=== PATIENT | female | born 1980 | race Caucasian/White ===

== ENCOUNTER 2017-12-28 08:57 | Day surgery (SDC) | payer OTHER ==
[2017-12-28] MEDS ORDERED: LIDOCAINE 1% 2 ML INJ ID PRN (09:08)
[2017-12-28] MEDS ORDERED: LR 1,000 ML IV ONE ×2 (09:08→10:01)
[2017-12-28] MEDS ORDERED: ceFAZolin 2 GM/DEXTROSE 100 ML IV ONE (09:08)
[2017-12-28] MEDS ORDERED: BACITRACIN ZINC 14.2 GM OINTTUBE TP ONE (09:32)
--- NOTE | 2017-12-28 09:46 | PDHPUP ---
History & Physical Update H&P update statement: This history and physical update is based on an assessment of the patient which was completed after admission or registration (within 24 hours), but prior to the surgery/procedure. H&P update: H&P reviewed & patient examined, no change in patient's condition since H&P completed
--- NOTE | 2017-12-28 09:56 | PDANEPAE ---
ANE Past Medical History - Cardiovascular History Hx Hypertension: No Hx Arrhythmias: No Hx Chest Pain: No Hx Coronary Artery / Peripheral Vascular Disease: No Hx CHF / Valvular Disease: No Hx Palpitations: No - Pulmonary History Hx COPD: No Hx Asthma/Reactive Airway Disease: No Hx Recent Upper Respiratory Infection: No Hx Oxygen in Use at Home: No Hx Sleep Apnea: No Sleep Apnea Screening Result - Last Documented: Negative - Neurologic History Hx Cerebrovascular Accident: No Hx Seizures: No Hx Dementia: No - Endocrine History Hx Diabetes: No - Renal History Hx Renal Disorders: No - Liver History Hx Hepatic Disorders: No - Neurological & Psychiatric Hx Hx Neurological and Psychiatric Disorders: Yes Neurological / Psychiatric History Comment: anxiety- has xanax prn - Cancer History Hx Cancer: No - Congenital Disorder History Hx Congenital Disorders: No - GI History Hx Gastrointestinal Disorders: Yes Gastrointestinal History Comment: constipation - Other Health History Other Health History: 4 months- - Chronic Pain History Chronic Pain: No - Surgical History Prior Surgeries: wisdom teeth removed ANE Review of Systems Review of Systems: - Exercise capacity METS (RN): 4 METS ANE Patient History - Allergies Allergies/Adverse Reactions: No Known Allergies Allergy (Verified 12/22/17 11:52) - Home Medications Home Medications: 12/22/17 [Last Taken 12/22/17] Xanax PRN 12/22/17 [Last Taken Unknown] - Smoking Hx Smoking Status: Never smoked - Family Anes Hx Family Hx Anesthesia Complications: none ANE Labs/Vital Signs - Vital Signs Height: 162.56 cm Weight: 52.163 kg ANE Physical Exam - Airway Neck exam: FROM Mallampati Score: Class 1 Mouth exam: normal dental/mouth exam - Pulmonary Pulmonary: no respiratory distress - Cardiovascular Cardiovascular: regular rate and rhythym - ASA Status ASA Status: I ANE Anesthesia Plan Anesthesia Plan: general endotracheal anesthesia
[2017-12-28] MEDS ORDERED: DEXAMETHASONE 4 MG/ML VIAL ONE ×2 (10:04)
[2017-12-28] MEDS ORDERED: fentaNYL 100 MCG/2 ML INJ ONE ×3 (10:04→14:33)
[2017-12-28] MEDS ORDERED: PROPOFOL 200 MG/20 ML VIAL ONE (10:04)
[2017-12-28] MEDS ORDERED: METOCLOPRAMIDE 10 MG/2 ML VIAL ONE (10:04)
[2017-12-28] MEDS ORDERED: ROCURONIUM 50 MG/5 ML VIAL ONE (10:05)
[2017-12-28] MEDS ORDERED: LIDOCAINE 2% 100 MG/5 ML SYR ONE (10:05)
[2017-12-28] MEDS ORDERED: SUCCINYLCHOLINE CHLORIDE 200 MG/10 ML SYR IVP ONE (10:05)
[2017-12-28] MEDS ORDERED: BUPIVACAINE/EPI 0.5% 30 ML SDV ONE (10:14)
[2017-12-28] MEDS ORDERED: NALOXONE HCL 0.4 MG/ML INJ IVP PRN (14:18)
[2017-12-28] MEDS ORDERED: ACETAMINOPHEN 500 MG TAB PO PRN (14:18)
[2017-12-28] MEDS ORDERED: ONDANSETRON 4 MG/2 ML VIAL IVP PRN (14:18)
[2017-12-28] MEDS ORDERED: fentaNYL 100 MCG/2 ML INJ IVP PRN (14:18)
[2017-12-28] MEDS ORDERED: ALBUTEROL 3 ML DEYVIAL IH PRN (14:18)
[2017-12-28] MEDS ORDERED: HYDROmorphONE/DILAUDID 1 MG/ML INJ IVP PRN (14:18)
[2017-12-28] MEDS ORDERED: HYDROCODONE/APAP 5/325 TAB PO PRN (14:18)
--- NOTE | 2017-12-28 14:29 | POSTANESTH ---
Post Anesthetic Evaluation Cardiovascular Status: Similar to Pre-Op Cond Respiratory Status: Similar to Pre-op Cond. Level of Consciousness/Mental Status: Mildly Sleepy, Arousable Pain Control: Adequate, Prn Tx Ordered Nausea/Vomiting Control: Adequate, Prn Tx Ordered Complications Possibly Related to Anesthesia: None Noted
--- NOTE | 2017-12-28 14:34 | POSTOPPROG ---
Post Op Note Date of Operation: 12/28/17 Surgeon: Manohar Perea Anesthesiologist: Rach Anesthesia: GET(General Endotracheal) Pre-op Diagnosis: R Parotid tumor Post-op Diagnosis: R Parotid tumor Indication: R Parotid tumor Procedure: Excision R Parotid tumor Findings: R Parotid tumor Inf/Abcess present in the surg proc area at time of surgery?: No Depth: Deep Incisional (Fascial) EBL: Minimal Drains: Jose Martin Galvan Specimen(s): Parotid mass
[2017-12-28] MEDS ORDERED: HYDROCODONE/APAP 5/325 TAB ONE (14:55)
[2017-12-28 18:17] VITALS: BP 107/64
--- NOTE | 2018-01-04 11:33 | GOP ---
[f rep st] OPERATIVE REPORT DATE OF OPERATION: 12/28/2017 SURGEON: Yoshi Perea MD CARGO INSPECTOR: Preethi Sharma MD. ANESTHESIA: General. PREOPERATIVE DIAGNOSIS: Right parotid tumor. POSTOPERATIVE DIAGNOSIS: Right deep lobe parotid tumor. PROCEDURE PERFORMED: Right total parotidectomy. FINDINGS: Right parotid tumor contained within the deep lobe. SPECIMENS: Right parotid mass. ESTIMATED BLOOD LOSS: Minimal. DESCRIPTION OF PROCEDURE: The patient was brought to the operating room by Anesthesiology and placed on the operating table. Once an appropriate level of anesthesia was achieved, the table was turned 90 degrees. 4-lead NIM leads were placed and found to be functioning appropriately with the [email or web address] facial nerve monitoring system. The patient was then prepped and draped in the usual fashion. The intended incision line was injected with 1% lidocaine with 1:100, 000 epinephrine. A marking pen was used to yoshi out a standard modified Kushal incision. A 15 blade was used to create the initial skin incision. The inferior subplatysmal fap was elevated inferiorly. Dissection was carried medially along the sternocleidomastoid. The inferior branch of the greater auricular nerve was identified, and ligated for access to the mass. Dissection continued medially along the sternocleidomastoid. The digastric was identified. Dissection continued superiorly along the SCM and temporal bone continuing with a combination of blunt dissection and electrocautery. The remainder of the SMAS flap was elevated and continued beyond the mass anteriorly and completed with the anterior border of the parotid was identified. Dissected continued anterior to the tragus. Approximately 1 cm anteinferior to the tragal pointer, the trunk of the facial nerve was identified. Dissection continued anteriorly along the facial nerve using a combination of blunt dissection and Harmonic Scalpel. Branches were identified going superiorly and were stimulated identifying the frontal and zygomatic branches. Parotid tissue was dissected off the nerves. Dissection continued over the buccal, marginal and cervical branches were identified and dissected free of overlying parotid. The anterior parotid tissue was then removed in order to gain access to the tumor that was in the deep lobe. The tumor was identified with all 5 branches draping over the tumor. The tumor appeared to displace these laterally. Care was taken to dissect each nerve as well as the trunk from the mass. Once a nerve was elevated and freed, it was able to be retracted gently with a vein retractor. The retromandibular vein was then identified. After identifying, it was ligated superiorly and inferiorly. The facial artery was identified. The mass was gently elevated off this. Again, the facial nerve and its branches were gently retracted inferiorly. This allowed for dissection at the inferior medial aspect of the mass. Dissection at the inferior portion of the tumor had violated the capsule. This was removed from the surgical site and sent for frozen section. Elevatoin of the tumor from surrounding tissues continued superiorly until the superior portion of the mass was reached and was elevated with the capsule intact. The surgical bed was inspected for bleeding. There was only minimal bleeding and hemostasis was achieved using bipolar electrocautery. The site was irrigated multiple times with copious sterile water. The frozen section revealed no evidence of malignancy. At this time, it was observed that there was a significant defect from this parotidectomy. Acellular derma matrix graft tissue was then selected and folded and placed overlying the facial nerve. This allowed for appropriate fill of the defect. This was sutured in place with circumferential 4-0 vicryl tacking sutures. A round drain was placed with an exit incision posterior to the incision at the hairline. 4-0 Vicryl sutures were then used to approximate the platysma. 4-0 Vicryl interrupted sutures were then used to reapproximate subcutaneous tissues. 6-0 nylon sutures were then used to approximate skin layers. The drain was placed to bulb suction. The patient tolerated the procedure well and was extubated in the operating room and transferred in good condition to the postanesthesia care unit. COMPLICATIONS: None. /[id number]/MODL MTDD
== END 2017-12-28 16:25 | disposition home or self-care (01) ==
LOC: FSGY 08:57
PROVIDERS: ATTEND Otolaryngology
PROC: 0CB80ZZ Excision of Right Parotid Gland, Open Approach (ICD-10-PCS; principal; 2017-12-28 10:00)
DX: D11.0 Benign neoplasm of parotid gland (principal); F41.9 Anxiety disorder, unspecified
CPT/HCPCS: J0330; J0690; J1100; J2001; J2704; J2765; J3010; Q4122